=== PATIENT | male | born 2000 | race Caucasian/White ===

== ENCOUNTER → 2024-11-09 15:40 | Outpatient (CLI) | payer OTHER, SELFPAY ==
--- NOTE | 2024-11-09 15:42 | DI.RAD.S_ITS ---
PROCEDURE: XR T AND L SPINE 4 TO 5 VIEWS INDICATIONS: Chronic thoracolumbar pain, possible scoliosis TECHNIQUE: 2 views acquired of the thoracolumbar spine. COMPARISON: None. FINDINGS: Bones: No acute fractures or dislocations. Mild S-shaped scoliosis is noted with 12? levoscoliosis of the lumbar spine centered about the L1-2 interspace and 9? dextroscoliosis centered about the the T9-10 interspace. Mild grade 1 retrolisthesis of L5 on S1 noted Visualized inferior ribs appear intact. No suspicious bony lesions. Soft tissues: No suspicious soft tissue calcifications. IMPRESSION: 1. No evidence of acute osseous abnormality. 2. Mild thoracic dextroscoliosis and lumbar levoscoliosis. 3. L5-S1 spondylosis. Dictated by: Afshin Soler M.D. on 11/10/2024 at 13:59 Approved by: Afshin Soler M.D. on 11/10/2024 at 14:03
[2024-11-09 16:22] LABS: Appearance Urine UA CLEAR; Bilirubin Urine UA NEGATIVE (NEGATIVE); Color Urine UA YELLOW; Glucose Urine UA NEGATIVE (Negative); Hematocrit 45.9 % (41-53); Hemoglobin 15.9 g/dL (13.5-17.5); Ketones Urine UA NEGATIVE (NEGATIVE); Leukocyte Esterase Urine UA NEGATIVE (NEGATIVE); Mean Corpuscular HGB Conc 34.7 % (30-36); Mean Corpuscular Volume 89.4 fL (80-100); Nitrite Urine UA NEGATIVE (Negative); Occult Blood Urine UA NEGATIVE (Negative); Platelet Count 245 X10^3/uL (150-400); Protein Urine UA NEGATIVE (Negative); Red Blood Cell Count 5.13 X10^6/uL (4.5-5.9); Red Cell Distribution Width 12.7 % (11.6-14.8); Urobilinogen Urine UA 0.2 E.U./dL (0.2); White Blood Cell Count 6.4 X10^3/uL (4.5-11.0)
[2024-11-09 16:30] LABS: Hemoglobin A1C% w Est Avg Glu 4.6 % (4.0-6.0)
[2024-11-09 16:37] LABS: Bacteria Urine None Seen; Culture Indicated Urine Cult Not Indicated; RBC Urine None Seen (0-5/HPF); Squamous Epithelial Cell Urine None Seen (0-5/HPF); Urine Volume 10mL (spun); WBC Urine 0-1/HPF (0-5/HPF)
[2024-11-09 16:44] LABS: Alanine Aminotransferase 21 IU/L (<50); Albumin Globulin Ratio 1.7 (1.0-2.8); Alkaline Phosphatase 53 U/L (38-126); Aspartate Aminotransferase 28 IU/L (17-59); BUN Creatinine Ratio 18.5 (6-22); Bilirubin Total 0.5 mg/dL (0.2-1.3); Blood Urea Nitrogen 15 mg/dL (9-20); Calcium 9.9 mg/dL (8.4-10.2); Carbon Dioxide 28 mmol/L (22-32); Chloride 104 mmol/L (98-107); Estimated Glomerular Filt Rate > 60 mL/min (>60); Glucose 88 mg/dL (70-100); HEMOLYSIS < 15 (0-50); Potassium 4.1 mmol/L (3.4-5.1); Sodium 139 mmol/L (137-145)
[2024-11-09 16:54] LABS: Erythrocyte Sedimentation Rate 1 MM/HR (0-15)
[2024-11-09 17:13] LABS: TSH w/ Reflex to FT4 1.16 uIU/mL (0.47-4.68)
[2024-11-11 15:25] LABS: HIV 1 & 2 Ab/Ag 4th Gen Combo NEGATIVE (NEGATIVE); Hep C Virus Ab w/Reflex Quant NEGATIVE s/c (NEGATIVE)
== END ==
PROVIDERS: PCP Family Medicine; Referring Provider Family Medicine; Visit Provider Family Medicine
DX: Z11.59 Encounter for screening for other viral diseases (principal); R63.4 Abnormal weight loss; R82.90 Unspecified abnormal findings in urine; Z11.4 Encounter for screening for human immunodeficiency virus [HIV]
CPT/HCPCS: 36415; 72083; 80053; 81001; 83036; 84443; 85027; 85651; 86803; 87389